=== PATIENT | female | born 1995 | race American Indian/Alaskan Native ===

== ENCOUNTER 2017-06-25 18:18 | Emergency (ER) | payer OTHER ==
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
[2017-06-26] MEDS ORDERED: DELTASONE PO ONE (00:06)
[2017-06-26] MEDS ORDERED: ATARAX PO ONE (00:06)
[2017-06-26] MEDS ORDERED: PEPCID PO ONE (00:06)
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
[2017-06-26] MEDS ORDERED: NORCO 5/325 PO ONE (00:20)
[2017-06-26 00:34] LABS: Basophils % (Auto) 0.8 % (0.0-1.8); Eosinophils % (Auto) 2.5 % (0.0-4.3); Hemoglobin 12.7 gm/dl (10.1-14.3); Mean Corpuscular HGB Conc 33 % (30-34); Mean Corpuscular Hemoglobin 29 pg (28-32); Mean Corpuscular Volume 89 fl (79-97); Platelet Count 385 K/mm3 (140-440); Red Blood Count 4.39 M/mm3 (3.65-5.03); Red Cell Distribution Width 14.3 % (13.2-15.2); White Blood Count 11.2 K/mm3 (4.5-11.0)
[2017-06-26 00:59] LABS: Alanine Aminotransferase 23 units/L (7-56); Albumin 3.9 g/dL (3.9-5); Alkaline Phosphatase 87 units/L (35-129); Anion Gap 20 mmol/L; Bilirubin,Total < 0.20 mg/dL (0.1-1.2); Blood Urea Nitrogen 13 mg/dL (7-17); Calcium 9.1 mg/dL (8.4-10.2); Carbon Dioxide 19 mmol/L (22-30); Chloride 100.7 mmol/L (98-107); Glucose 88 mg/dL (65-100); Sodium 136 mmol/L (137-145); Total Protein 7.7 g/dL (6.3-8.2)
[2017-06-26 01:08] LABS: Bilirubin,Direct < 0.2 mg/dL (0-0.2)
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
[2017-06-26 02:55] VITALS: BP 121/66
== END 2017-06-26 02:56 | disposition home or self-care (01) ==
LOC: ED 18:18
DX: S53.401A Unspecified sprain of right elbow, initial encounter (principal); S83.8X1A Sprain of other specified parts of right knee, initial encounter; R07.89 Other chest pain; F17.200 Nicotine dependence, unspecified, uncomplicated; W07.XXXA Fall from chair, initial encounter; Y93.9 Activity, unspecified; Y99.9 Unspecified external cause status; Y92.89 Other specified places as the place of occurrence of the external cause
CPT/HCPCS: 36415; 71250; 80048; 80074; 84703; 85025